=== PATIENT | female | born 1975 | race Caucasian/White ===

== ENCOUNTER 2016-06-21 11:00 | Emergency (ER) | payer MEDICAID, OTHER ==
[~2016-06-21] VITALS: Ht 180.3 cm; Wt 100.0 kg
[~2016-06-21 11:00] MED LIST: ACET325 PO; BISA10R PR; CARI1TAB34 PO; CITA-48 PO; CITA40 PO; DIPH25 PO; DOCU1CAP39 PO; FIORIC PO; GABA300 PO; GABA600T PO; LORTA10 PO; MAGN30S PO; SOMA350T PO; Z.0.WALKERFRONT
[2016-06-21 11:03] VITALS: BP 118/68; PULSE 84; RESP 20; TEMP 98.1; O2SAT 98
[2016-06-21] MEDS ORDERED: ACETAMINOPHEN/HYDROcodone 325 MG/5 MG TAB PO ONE (11:45)
[2016-06-21] MEDS ORDERED: DEXAMETHASONE SOD PHOS 4 MG/ML VIAL IM ONE (11:45)
[2016-06-21] MEDS ORDERED: ORPHENADRINE INJ 60 MG/2 ML AMP IM ONE (11:45)
--- NOTE | 2016-06-21 11:52 | PD ---
HPI Chief Complaint: Back/ Neck Pain or Injury Time Seen by Provider: 11:46 Travel History International Travel<30 days: No Contact w/Intl Traveler<30days: No Traveled to known affect area: No History of Present Illness HPI 40-year-old female with a history of chronic back pain and degenerative disc disease presents to the emergency room for evaluation of acute on chronic low back pain. Patient first developed back pain in 2007. States she had lumbar fusion 3 years ago but it did not significantly improve her symptoms. She reports chronic pain that worsened yesterday without trauma or injury. States she developed it throughout the day and it became severe by night fall. Pain is localized to lumbar spine with occasional radiation laterally. It is worse with sitting and feels better with lying down or standing up. She took 750 mg naproxen this morning which has not helped at all. Patient has an appointment with her primary care physician next month and sees a chiropractor for this pain. She was going to pain management but they were not treating her pain appropriately according to her. She denies recent weight loss, fever, chills, IV drug use, saddle anesthesia, lower extremity paresthesias, or loss of bowel or bladder control. PFSH Past Medical History Cancer: No Cardiovascular Problems: No Diabetes: No Endocrine: No Genitourinary: No Headaches: Yes (MIGRAINES) Hepatitis: No Hiatal Hernia: No Immune Disorder: Yes (FIBROMYALGIA) Musculoskeletal: Yes (ARTHRITIS IN BACK, HERNIATED DISCS LOWER BACK) Neurologic: Yes (HX OF VERTIGO, MIGRAINES) Psychiatric: No Reproductive: No Respiratory: No Migraines: Yes Thyroid Disease: No ?: Not Past Surgical History Abdominal Surgery: Yes (APPENDECTOMY 2003) AICD: No Appendectomy: Yes Section: Yes Gynecologic Surgery: Yes (CESARIAN SECTION 2002, HYSTERECTOMY 2012) Joint Replacement: No Pacemaker: No Social History Alcohol Use: Yes (OCCASIONALLY) Tobacco Use: No Substance Use: No Allergies-Medications (Allergen,Severity, Reaction): Coded Allergies: Gluten (Verified Adverse Reaction, Severe, diarrhea, 06/21/16) Reported Meds & Prescriptions Reported Meds & Active Scripts Active Robaxin (Methocarbamol) 750 Mg Tab 750 Mg PO Q8HR Lortab (Hydrocodone-Acetaminophen) 5-325 Mg Tab 1 Tab PO Q6H PRN Prednisone 20 Mg Tab 40 Mg PO DAILY 5 Days Review of Systems Except as stated in HPI: all other systems reviewed are Neg Physical Exam Narrative GENERAL: Well-nourished, well-developed female in no acute distress. Afebrile. Ambulatory. In a back brace. SKIN: Warm and dry. HEAD: Normocephalic. EYES: No scleral icterus. No injection or drainage. NECK: Supple, trachea midline. No JVD or lymphadenopathy. CARDIOVASCULAR: Regular rate and rhythm without murmurs, gallops, or rubs. RESPIRATORY: Breath sounds equal bilaterally. No accessory muscle use. BACK: Mild tenderness to palpation of the lower lumbar spine. No obvious deformity. No CVA tenderness. 2+ patellar and Achilles reflexes equal bilaterally. Data Data Last Documented VS Vital Signs Date Time Temp Pulse Resp B/P Pulse Ox O2 Delivery O2 Flow Rate FiO2 06/21/16 11:03 98.1 84 20 118/68 98 Room Air Orders Orphenadrine Inj (Norflex Inj) (06/21/16 11:45) Dexamethasone Inj (Decadron Inj) (06/21/16 11:45) Acetamin-Hydrocod 325-5 Mg ([place] 5-325 (06/21/16 11:45) MDM Medical Decision Making Medical Screen Exam Complete: Yes Emergency Medical Condition: Yes Medical Record Reviewed: Yes Differential Diagnosis Acute on chronic back pain versus degenerative disc disease versus stenosis Narrative Course 40-year-old female with a history of chronic back pain and degenerative disc disease presents to the emergency room for evaluation of acute exacerbation of pain. Describes it as muscle spasm. Patient denies trauma or injury. States pain started yesterday and worsened by nightfall. No red flag symptoms. No focal neurological deficits. No significant midline tenderness. Achilles and patellar reflexes 2+ and equal bilaterally. No indication for emergent x-ray imaging at this time. She was given Norflex, Decadron, and Lortab in the emergency room. She will be discharged with prescriptions for Robaxin, prednisone, and short course of Lortab. Told to follow up with her primary care physician or return to the emergency room for worsening symptoms. She understands and agrees to this plan. Diagnosis Primary Impression: Lumbar degenerative disc disease Referrals: Primary Care Physician Patient Instructions: Acute Low Back Pain (ED), General Instructions Additional Instructions: Rest and drink plenty of fluids. Take prednisone as directed, until gone. Take Robaxin and Lortab as directed, as needed for pain. Do not drink alcohol or drive while taking this medication. Take ibuprofen with food as directed, as needed for pain. Apply ice to the affected area for 20 minutes at a time, as needed for pain and swelling. Follow-up with a primary care physician. Return to the emergency room for worsening symptoms. Med/Other Pt SpecificInfo: Prescription(s) given Scripts Methocarbamol (Robaxin)750 Mg Dpg349 Mg PO Q8HR #21 TAB Ref 0 Prov:Leidy Randall MD 06/21/16 Hydrocodone-Acetaminophen (Lortab)5-325 Mg Tab1 Tab PO Q6H PRN (PAIN) #12 TAB Ref 0 Prov:Leidy Randall MD 06/21/16 Prednisone 20 Mg Tab40 Mg PO DAILY 5 Days Ref 0 Prov:Leidy Randall MD 06/21/16 Disposition: 01 DISCHARGE HOME Condition: Stable Ciara Timmons Jun 21, 2016 11:52
[2016-06-21] MEDS ORDERED: HYDR-3533 PO (11:53)
[2016-06-21] MEDS ORDERED: PRED20 PO (11:53)
[2016-06-21] MEDS ORDERED: ROBA750T PO (11:53)
== END 2016-06-21 12:08 | disposition home or self-care (01) ==
LOC: NEPB 11:00
DX: M51.36 Other intervertebral disc degeneration, lumbar region (principal); G89.29 Other chronic pain
CPT/HCPCS: 96372; 99283; J1100; J2360